=== PATIENT | female | born 1970 | race Two or more races ===

== ENCOUNTER 2024-09-13 12:36 | Emergency (ER) | payer MEDICAID, SELFPAY ==
--- NOTE | 2024-09-13 13:03 | EKG_ITS ---
[facility] Test Date: 2024-09-13 Pat Name: YOSEPH MEAD Department: Room: - Gender: Female Product Coordinator: : 1970 Requested By: ED Temporary Provider Order Number: [id number] Reading MD: ED Temporary Provider Measurements Intervals [place] Rate: 85 P: 50 UT: 160 QRS: 5 QRSD: 77 T: 39 QT: 349 QTc: 417 Interpretive Statements SINUS RHYTHM No previous ECG available for comparison /store/S0/[id number].pdf
[2024-09-13 13:06] VITALS: BP 130/91; PULSE 96; RESP 18; TEMP 37; O2SAT 100; BMI 32.0
[2024-09-13 14:00] VITALS: BP 120/92; PULSE 87; RESP 20; TEMP 36.8; O2SAT 98
--- NOTE | 2024-09-13 14:07 | EDNOTE_ITS ---
ED Syncope RME/HPI General Chief Complaint: Syncope / Near Syncope Stated Complaint: SYNCOPAL EPISODE Time Seen by Provider: 09/13/24 14:06 Arrival date/time: 09/13/24 12:36 RME / HPI RME / HPI narrative: 54 year old female with history of hyperlipidemia, post menopause presents to the ED for evaluation of chest tightness and shortness of breath today. States in the past when she becomes upset she has chest tightness and shortness of breath. However, today after hearing commotion in the family she became scared. Followed by chest tightness, feeling short of breath, and light headed. Per son in law, patients body became very limp lasting < 5 seconds. While in the ED patient reports feeling back at baseline. Denies fevers, chills, cough, abdominal pain, nausea, diarrhea, or urinary symptoms. Related Data Allergies Allergy/AdvReac Type Severity Reaction Status Date / Time No Known Allergies Allergy Verified 09/13/24 12:43 Review of Systems Review of Systems Narrative Review of Systems: GEN: No fever, no chills, no weight loss EYES: No discharge, no visual changes, no pain HEENT: No ear pain, no congestion, no sore throat PULM: + shortness of breath that improved, no cough, no congestion CV: +syncopal episode?. +chest tightness that improved, no palpitations GI: No nausea, no vomiting, no diarrhea, no pain, no constipation : No frequency, no urgency and no dysuria MUSC/SKEL No joint pain, no back pain SKIN: No rash PSYCH: No hallucinations, no depression HEME/LYMPH: No easy bleeding or bruising tendencies NEURO: No weakness, no headache Past Medical History Social History SMOKING STATUS: Never smoker ED Exam Narrative Physical exam: GENERAL APPEARANCE: Well hydrated, well nourished, in no acute distress. VITALS: All vitals were reviewed and the pulse ox is 100% on room air which is normal according to my interpretation. HEENT: Normocephalic, atramatic, EOMI, EACs are patent. There is no bulge or retraction. Throat without erythema or exudate. Moist oromucosa. No jaundice NECK: Supple, no JVD or bruits. CARDIOVASCULAR: Heart regular without S3-S4 or murmur. No rubs or gallops. LUNGS/CHEST: Clear to auscultation bilaterally. No rales, rhonchi, or wheezing. Normal inspection. ABDOMEN: Soft, nontender, with normal bowel sounds. No pulsatile masses. No rebound, rigidity, or guarding. No incarcerated hernia. Normal inspection and palpation. EXTREMITIES: Normal inspection and palpation. No edema, clubbing, or cyanosis. Intact CSM SKIN: Warm and dry without rashes. Normal inspection. MUSCULOSKELETAL: Normal inspection. No gross deformity, full ROM all extremities NEURO: Alert and oriented x3. Cranial nerves II through XII grossly intact. There are no other motor or sensory deficits noted. PSYCHIATRIC: Normal mood and affect. No psychosis Course Quality Measures none Orders Category Date Time Status EKG (ED ONLY) *Do not use* NOW Care 09/13/24 13:03 Completed EKG (ED Only) Stat Exams 09/13/24 13:03 Draft Vital Signs Vital signs: Vital Signs Temperature 98.6 F 09/13/24 13:06 Pulse Rate 96 09/13/24 13:06 Respiratory Rate 18 09/13/24 13:06 Blood Pressure 130/91 H 09/13/24 13:06 Pulse Oximetry (%) 100 09/13/24 13:06 Oxygen Delivery Method Room Air 09/13/24 13:06 Syncope MDM Narrative MDM Narrative:: IJerri, fernando scribing for and in the presence of Dr. Ochoa. Twelve-lead EKG that was done at 1350 in the ER and interpreted by me: Normal sinus rhythm. Heart rate 95. Normal axis. No ST elevation or depression. No PVC. No STEMI. Regular rate and rhythm. The patient is alert awake oriented x 4 GCS of 15. She passed out during the commotion between her 2 son-in-law. She thought that they were fighting but that which is horsing around. She passed out for maybe a few seconds and she was on the bed. No falling. No seizure. Now she is back to normal. She said that this happened to her a few times in the past and one of the son-in-law told me that the patient has a history of anxiety and she passed out about 3 times in the past due to something similar. Patient data External records reviewed:: None (No previous records for review) Clinical information provided by:: patient Social determinants that could affect healthcare access:: none Patient has the following chronic illnesses:: HLD How is presenting disease/condition affected by chronic disease/condition?: uneffected by Evaluation data The following diagnostics were reviewed and interpreted by me:: EKG tracing(s) Lab and/or radiology exams considered but not ordered:: None Interpretation Summary: As noted above Medications / Prescriptions Medications or Prescriptions considered but not ordered:: None Medication administrations:: None Consultations Consultation(s) initiated? (list below): No Diagnosis Syncope Differential Diagnosis: vasovagal syncope, dehydration and other (Anxiety, [place]) Most likely diagnosis given after review of the tests above:: Fainting Admission Indicated Admission indicated?: not indicated Admission Request Was there a request for admission?: No Disposition Plan Disposition Plan: Discharge Discharge Attestation Discharge Attestation: The patient and all family members were given an opportunity to ask questions and understood the discharge instructions. Discharge instructions specifically effects, indications for sooner follow up or return to the emergency department, and the expected course of current diagnosis. Patient condition: Stable Discharge Plan Plan Patient Disposition: HOME (Self Care) Disposition Comment: Stable for DC Problem List Clinical Impression: Vasovagal syncope Patient/Caregiver Discharge Instructions Education Materials: ED Fainting, Vagal Reaction Additional Instructions: Rest. Avoid any conflict situation. Follow-up with your medical doctor next few days. Return to nearest ER if any problem. Print Language: Ukrainian Stand Alone Forms: [place] Award Info., Patient Portal Info Letter
[2024-09-13 14:45] VITALS: BP 142/83; PULSE 82; RESP 19; O2SAT 100
== END 2024-09-13 14:45 | disposition home or self-care (01) ==
PROVIDERS: Emergency Provider Emergency Medicine; PCP Nurse Practitioner Family
DX: R55 Syncope and collapse (principal); R07.89 Other chest pain; R06.02 Shortness of breath
CPT/HCPCS: 93005; 99283